=== PATIENT | female | born 1965 | race Caucasian/White ===

== ENCOUNTER 2016-10-12 02:32 | Emergency (ER) | payer MEDICARE, OTHER ==
[~2016-10-12] VITALS: Ht 180.3 cm; Wt 76.2 kg
[~2016-10-12 02:32] MED LIST: ALBU18HF2 INH; ALPR1TAB2 PO; APRE30TA2; ASCO250T5 PO; ASPI-450 PO; CALC-52 PO; CARI350T26 PO; CARV25TA2 PO; CHLO25TA2 PO; CHOL400T41 PO; DESV100T PO; DEXA4TAB PO; DIPH25CA84 PO; EPIN0.3P3 IJ; ESTR0.3T3 PO; FOLI1TAB15 PO; FURO20TA4 PO; METH25VI11 SQ; MULT400C3; NITR0.4T39 SL; NORT10CA2 PO; OMEP-29 PO; ONDA-56 PO; OXYC-541 PO; POTA10TA PO; PROM25TA7 RC; ROPI0.5T PO; SIMV40TA5 PO; TRAM50TA4 PO; TRIA15OI6 TOP
[2016-10-12 02:37] VITALS: Ht 180.3 cm; Wt 76.2 kg
--- NOTE | 2016-10-12 03:09 | NUR ---
PROVIDER DR VARNER IN ROOM W/ PT.
[2016-10-12] MEDS ORDERED: NORMAL SALINE 1,000 ML IV ONE (03:15)
[2016-10-12] MEDS ORDERED: ONDANSETRON 4mg/2ml INJECTION IV ONE (03:15)
[2016-10-12] MEDS ORDERED: BUSP10TA3 (03:23)
--- NOTE | 2016-10-12 03:35 | NUR ---
CT PT TO CT PER COT.
--- NOTE | 2016-10-12 03:51 | NUR ---
CT PT RETURNED FROM CT.
[2016-10-12 04:24] LABS: BASOPHILS # (AUTO) 0.1 T/MM3 (0-0.2); BASOPHILS % (AUTO) 0.6 % (0-2); EOSINOPHILS # (AUTO) 0.2 T/MM3 (0-0.5); EOSINOPHILS % (AUTO) 1.8 % (0-4); HCT - HEMATOCRIT 41.9 % (36-46); HGB - HEMOGLOBIN 13.7 GM/DL (12-16); IMMATURE GRANULOCYTE # (AUTO) 0.03 T/MM3 (0.00-0.03); IMMATURE GRANULOCYTE % (AUTO) 0.3 % (0.0-0.5); LYMPHOCYTES # (AUTO) 3.8 T/MM3 (1-4.8); LYMPHOCYTES % (AUTO) 35.5 % (23-45); MEAN CORPUSCULAR HGB 28.2 UUG (26-34); MEAN CORPUSCULAR HGB CONC(MCHC 32.7 GM/DL (31-37); MEAN CORPUSCULAR VOLUME 86.4 UM3 (80-100); MEAN PLATELET VOLUME 8.5 UM3 (9.4-12.4); MONOCYTES # (AUTO) 0.5 T/MM3 (0-0.8); MONOCYTES % (AUTO) 4.7 % (0-9.0); NEUTROPHILS #(AUTO)-ABSOLUTE 6.2 T/MM3 (1.8-7.7); NEUTROPHILS % (AUTO) 57.1 % (33-66); RED BLOOD COUNT 4.85 M/MM3 (4.00-5.20); WBC - WHITE BLOOD COUNT 10.8 T/MM3 (4.5-11.0)
[2016-10-12] MEDS ORDERED: HYDROMORPHONE 2mg/ml INJECTION IV ONE ×2 (04:30→05:30)
[2016-10-12 04:39] LABS: ALBUMIN 4.6 G/DL (3.5-5.0); ALBUMIN/GLOBULIN RATIO 1.5 RATIO (1.1-2.2); ALKALINE PHOSPHATASE 75 U/L (38-126); ALT (SGPT) 36 U/L (9-52); ANION GAP 17 MEQ/L (5-15); AST (SGOT) 24 U/L (14-36); BUN/CREATININE RATIO 18 RATIO (6-26); CALCIUM 8.9 MG/DL (8.4-10.2); CHLORIDE 101 MEQ/L (98-107); CO2 - CARBON DIOXIDE 30 MEQ/L (22-30); CREATININE 0.8 MG/DL (0.7-1.2); GLOMERULAR FILTRATION RATE 75; GLUCOSE 100 MG/DL (65-110); LIPASE 135 U/L (23-300); POTASSIUM 3.7 MEQ/L (3.6-5); SODIUM 148 MEQ/L (134-144); TOTAL PROTEIN 7.7 G/DL (6.3-8.2)
[2016-10-12] MEDS ORDERED: IOHEXOL 300 MG/ML 100ml INJECTION ONE (04:53)
[2016-10-12] MEDS ORDERED: NORMAL SALINE 100 ML ONE (04:53)
[2016-10-12] MEDS ORDERED: SALINE FLUSH 10ml SYRINGE ONE (04:53)
--- NOTE | 2016-10-12 04:57 | NUR ---
CT SCAN PT GONE TO CT SCAN VIA CART.
--- NOTE | 2016-10-12 05:30 | ERPDOC ---
Departure Disposition Decision Date: October 12, 2016 Disposition Decision Time: 05:49 Disposition: 01 DISCHARGED HOME, SELF-CARE Impression Impression Impression: Primary Impression: Acute exacerbation of chronic low back pain Additional Impressions: Concussion Encounter type: initial encounter Loss of consciousness presence/duration: without LOC Qualified Codes: S06.0X0A - Concussion without loss of consciousness, initial encounter Fall from one level to another as cause of accidental injury Severity: Moderate Condition: Stable Seen By: Physician only Referrals: FRANCISCO GODOY DO (Family) Patient Instructions: Fall Prevention (ED) Problems/Meds/Labs Reviewed?: Yes Medications reviewed and manag: Yes Additional Instructions: Take your Percocet at home you may take one every 4 hours, you may also use anti -inflammatories such as ibuprofen or Aleve, not both. Follow-up with your primary medical physician or re dye hand. Follow up care ordered?: Yes Mental Status: Alert HPI - Fall/Injury General Chief Complaint: Low Back Pain or Injury Stated Complaint: FELL, HEAD AND BODY PAIN Time Seen by Provider: 02:41 HPI - Fall/Injury Allergies: Coded Allergies: amitriptyline (Verified Allergy, Severe, 07/16/15) codeine (Verified Allergy, Severe, 07/16/15) hydrocodone (Verified Allergy, Severe, 07/16/15) meperidine (Verified Allergy, Severe, 07/16/15) prochlorperazine (Verified Allergy, Severe, 07/16/15) latex (Verified Allergy, Intermediate, 07/16/15) adhesive tape (Verified Allergy, Unknown, 07/16/15) amphetamine (Verified Allergy, Unknown, 07/16/15) dextroamphetamine (Verified Allergy, Unknown, 07/16/15) Uncoded Allergies: SAFFRAS (Allergy, Unknown, 07/02/15) Past History Past Medical History Metabolic: hypertension Cardiac: other Respiratory: asthma, pneumonia GI: GERD, IBS Female: UTI Neurological: fibromyalgia, migraines Musculoskeletal: back pain, osteoarthritis Integumentary: eczema Psychological: anxiety, bipolar, other Surgical History General: EGD, appendix Reproductive/: hysterectomy, other Joint: other Family History Family PMH: FOUND: other Vaccines Hx Influenza Vaccination: Yes (FEB 2014) Hx Pneumococcal Vaccination: Yes (FEB 2013) Hx Tetanus Diptheria: Yes (2007) Social History Sexuality: male partner Physical Exam General Vitals and Pain First Documented Vital Signs Date Time Temp Pulse Resp B/P Pulse Ox O2 Delivery O2 Flow Rate FiO2 10/12/16 02:37 98.7 99 20 105/64 96 Room Air Weight: Kilograms: 76.200 Height (feet): 5 Height (inches): 11.00 Triage Pain Scale: Progress Results/Orders Orders Procedure Category Date Status Time Iv Lock (Ed Only) EDM 10/12/16 Transmitted 03:14 Cbc W/Auto LAB 10/12/16 Complete Diff-Reflex Manual 03:14 Cmp - Comprehensive LAB 10/12/16 Complete Metabolic 03:14 Lipase LAB 10/12/16 Complete 03:14 Ct Head W/O Contrast CT 10/12/16 Taken 03:14 Ct Lumbar Spine W/O CT 10/12/16 Taken Contrast 03:14 Normal Saline (Normal PHA 10/12/16 Complete Saline Iv) 03:15 Ondansetron Inj PHA 10/12/16 Complete (Zofran) 03:15 Hydromorphone PHA 10/12/16 Complete (Dilaudid) 04:30 Ct Abd/Pelvis CT 10/12/16 Taken W/Contrast Only 04:40 Iohexol (Omnipaque) PHA 10/12/16 Complete 04:53 Normal Saline (Ns) PHA 10/12/16 Complete 04:53 Saline Flush (Iv PHA 10/12/16 Complete Flush) 04:53 Hydromorphone PHA 10/12/16 Complete (Dilaudid) 05:30 Ketorolac (Toradol) PHA 10/12/16 Transmitted 06:00 Orphenadrine (Norflex) PHA 10/12/16 Transmitted 06:00 Lab Results Laboratory Tests Test 10/12/16 04:18 White Blood Count 10.8T/MM3 Red Blood Count 4.85M/MM3 Hemoglobin 13.7GM/DL Hematocrit 41.9% Mean Corpuscular Volume 86.4UM3 Mean Corpuscular Hemoglobin 28.2UUG Mean Corpuscular Hemoglobin Concent 32.7GM/DL RDW Standard Deviation 42.6FL Platelet Count 364T/MM3 Mean Platelet Volume 8.5UM3 Immature Granulocyte % (Auto) 0.3% Neutrophils (%) (Auto) 57.1% Lymphocytes (%) (Auto) 35.5% Monocytes (%) (Auto) 4.7% Eosinophils (%) (Auto) 1.8% Basophils (%) (Auto) 0.6% Absolute Immature Granulocyte (auto 0.03T/MM3 Absolute Neutrophils (auto) 6.2T/MM3 Absolute Lymphocytes (auto) 3.8T/MM3 Absolute Monocytes (auto) 0.5T/MM3 Absolute Eosinophils (auto) 0.2T/MM3 Absolute Basophils (auto) 0.1T/MM3 Turbidity < 20 Sodium Level 148MEQ/L Potassium Level 3.7MEQ/L Chloride Level 101MEQ/L Carbon Dioxide Level 30MEQ/L Anion Gap 17MEQ/L Blood Urea Nitrogen 14.0MG/DL Creatinine 0.8MG/DL Glomerular Filtration Rate Calc 75 BUN/Creatinine Ratio 18RATIO Glucose Level 100MG/DL Calculated Osmolality 285MOSM/KG Calcium Level 8.9MG/DL Total Bilirubin 0.70MG/DL Icterus Index < 2 Aspartate Amino Transf (AST/SGOT) 24U/L Alanine Aminotransferase (ALT/SGPT) 36U/L Alkaline Phosphatase 75U/L Total Protein 7.7G/DL Albumin 4.6G/DL Globulin 3.1G/DL Albumin/Globulin Ratio 1.5RATIO Lipase 135U/L Chemistry Specimen Hemolysis 58 Medications Current ED Medications Sodium Chloride (Normal Saline IV) 1,000 ml @ 999 mls/hr Q1H1M ONCE IV Last administered on 10/12/16 04:32; Start 10/12/16 at 03:15; Stop 10/12/16 at 04:15 ; Status DC Ondansetron HCl (Zofran) 4 mg O ONCE IV Last administered on 10/12/16 04:33; Start 10/12/16 at 03:15; Stop 10/12/16 at 03:17; Status DC Hydromorphone HCl (Dilaudid) 0.5 mg O ONCE IV Last administered on 10/12/16 04:34; Start 10/12/16 at 04:30; Stop 10/12/16 at 04:31; Status DC Iohexol 1 bottle 1 bottle STK-MED ONCE .ROUTE ; Start 10/12/16 at 04:53; Stop at 04:54; Status DC Sodium Chloride (NS) 100 ml @ As Directed STK-MED ONCE .ROUTE ; Start 10/12/16 at 04:53; Stop 10/12/16 at 04:54; Status DC Sodium Chloride (Iv Flush) 10 ml STK-MED ONCE .ROUTE ; Start 10/12/16 at 04:53; Stop 10/12/16 at 04:54; Status DC Hydromorphone HCl (Dilaudid) 1 mg O ONCE IV Last administered on 10/12/16t 05: 33; Start 10/12/16 at 05:30; Stop 10/12/16 at 05:31; Status DC ABRAHAM VARNER MD October 12, 2016 05:30
[2016-10-12] MEDS ORDERED: KETOROLAC 30mg/ml INJECTION IV ONE (06:00)
[2016-10-12] MEDS ORDERED: ORPHENADRINE 60mg/2ml INJECTION IV ONE (06:00)
[2016-10-12 06:11] VITALS: BP 109/70; PULSE 100; RESP 20; TEMP 98.7; O2SAT 94
--- NOTE | 2016-10-12 06:11 | NUR ---
DISCHARGE PT GIVEN INSTRUCTIONS FOR CONT CARE OF FALL PREVENTION AND LOW PAIN. PT VERVABLIZED UNDERSTANDING AND SIGNED FORM,PT LEFT ER ALERT, VS CHARTED CONDITION IMPROVED AND NO NOACUTE DISTRESS.
--- NOTE | 2016-10-12 11:44 | DI ---
Indication: ITS.REASON: fall, severe pain right upper quadrant rule out intra-abdominal i PROCEDURE: CT ABD/PELVIS W/CONTRAST ONLY: Encounter: Initial Comparison: None Technique: Axial CT images were performed through the abdomen and pelvis after the administration of intravenous contrast. Coronal and sagittal two-dimensional reformats. Automated Exposure Control and Iterative Reconstruction dose reducing techniques were utilized. Contrast: Omnipaque 300 100 mL Findings: The lung bases are clear. The liver shows no focal enhancing mass or bile duct dilatation. Probable mild fatty infiltration. The gallbladder, spleen, pancreas and adrenal glands are within normal limits. The kidneys are normal. No abdominal or pelvic adenopathy. No free fluid or hemorrhage. No evidence of solid organ laceration. No evidence of a bowel obstruction air. Bone windows show mild degenerative changes in the spine. Impression: No acute traumatic abnormality in the abdomen or pelvis. There is a preliminary report by [facility]. .
--- NOTE | 2016-10-12 11:45 | DI ---
Indication: ITS.REASON: fall, hit head severe headache PROCEDURE: CT HEAD W/O CONTRAST: Encounter: Initial Comparison: None Technique: Axial CT images through the head were performed without contrast. Iterative Reconstruction dose reducing technique was utilized. FINDINGS: The ventricles are of normal size, shape, and configuration for the patient's age. There is no evidence of acute intracranial hemorrhage, midline displacement, or mass effect. The CT attenuation of the brain parenchyma is normal within the cerebellum, brain stem, and cerebral hemispheres. The tympanic cavities and mastoid air cells are free of appreciable disease. There are no definite fractures of the skull base, calvarium, or visualized portion of the midface. IMPRESSION: No CT evidence of acute traumatic intracranial injury. There is a preliminary report by [employer]. .
--- NOTE | 2016-10-12 11:45 | DI ---
Indication: ITS.REASON: fall acute on chronic low back pain PROCEDURE: CT LUMBAR SPINE W/O CONTRAST: Encounter: Initial Comparison: MRI lumbar spine dated February 19, 2016 Technique: Axial noncontrast CT imaging of the lumbar spine was performed with coronal and sagittal two-dimensional reformats. Automated Exposure Control and Iterative Reconstruction dose reducing techniques were utilized. FINDINGS: The alignment of the lumbar spine is normal for the patient's age. No fractures or traumatic subluxation of the lumbar spine is evident. The facet joints are well aligned with preservation of the intervertebral disk and facet joints. There are age appropriate degenerative changes within the intervertebral disks and facet joints in the lower lumbar region. There is no evidence of significant spinal stenosis, foraminal compromise, disk herniation, or epidural hematoma. The paraspinal soft tissues and spinal canal are otherwise unremarkable in appearance. IMPRESSION: No evidence for acute traumatic injury of the lumbar spine. There is a preliminary report by [facility]. .
== END 2016-10-12 06:11 | disposition home or self-care (01) ==
LOC: ED 02:32
DX: S06.0X0A Concussion without loss of consciousness, initial encounter (principal); M54.5 Low back pain; R10.11 Right upper quadrant pain; W17.89XA Other fall from one level to another, initial encounter; Y93.9 Activity, unspecified; Y92.009 Unspecified place in unspecified non-institutional (private) residence as the place of occurrence of the external cause; Y99.8 Other external cause status
CPT/HCPCS: 36415; 70450; 72131; 74177; 80053; 83690; 85025; 96374; 96375; 96376; 99284; J1170; J1885; J2360; J2405; J7030; J7050; Q9967